=== PATIENT | male | born 1965 | race African-American/Black ===

== ENCOUNTER 2020-10-04 08:57 | Emergency (ER) | payer BC, OTHER ==
[2020-10-04 09:04] VITALS: BP 130/86; PULSE 88; TEMP 99.1; BMI 30.1
[2020-10-04] MEDS ORDERED: ACETAMINOPHEN 325 MG TABLET (FP) PO ONE (09:16)
[2020-10-04] MEDS ORDERED: DIPHTH,PERTUSS(ACELL),TET 0.5 ML DISP.SYRIN IM ONE ×2 (09:16→09:24)
[2020-10-04] MEDS ORDERED: ACETAMINOPHEN 325 MG TABLET (FP) ONE (09:24)
== END 2020-10-04 10:35 | disposition home or self-care (01) ==
LOC: FER 08:57
PROC: 0HQFXZZ Repair Right Hand Skin, External Approach (ICD-10-PCS; principal; 2020-10-04)
PROC: 3E0234Z Introduction of Serum, Toxoid and Vaccine into Muscle, Percutaneous Approach (ICD-10-PCS; 2020-10-04)
DX: S61.411A Laceration without foreign body of right hand, initial encounter (principal); S61.214A Laceration without foreign body of right ring finger without damage to nail, initial encounter
CPT/HCPCS: 73130-TC-RT-FY; 90715; 99284-25

== ENCOUNTER 2020-10-11 15:42 | Emergency (ER) | payer OTHER ==
[2020-10-11 16:04] VITALS: BP 128/91; TEMP 99.2; BMI 30.1
[2020-10-11 16:31] VITALS: PULSE 95
== END 2020-10-11 16:40 | disposition home or self-care (01) ==
LOC: FER 15:42
DX: Z48.00 Encounter for change or removal of nonsurgical wound dressing (principal)
CPT/HCPCS: 99281-25